=== PATIENT | male | born 1970 | race Caucasian/White ===

== ENCOUNTER 2018-10-10 08:01 | Outpatient (CLI) ==
[2017-12-17 04:02] VITALS: BMI 32.3
--- NOTE | 2018-10-10 09:52 | CT ---
EXAM: CT ABDOMEN AND PELVIS HISTORY: Pelvic and left flank pain, low back pain. Difficulty urinating at times. TECHNIQUE: CT abdomen and pelvis with and without intravenous contrast. Images were reconstructed u sing 5 mm section thickness. Reformations were prepared. 100 mL Omnipaque. COMPARISON: 12/17/2017 FINDINGS: Unenhanced images reveal a 15 mm water attenuation cystic mass of the medial upper right renal cortex . There is no nephrolithiasis or hydronephrosis. There is no perinephric fat stranding or ureteral calculus. The right kidney is slightly smaller than the left kidney possibly related to a degree of atrophy. After intravenous contrast administration, the kidneys revealed normal enhancement. The sm all cystic mass of the right kidney revealed no internal enhancement and is stable in size since prev ious study. The liver and spleen are within normal limits. Gallbladder is decompressed. No pancreatic or adrena l pathology is seen. Normal abdominal aorta. The stomach is mildly distended with food product, non specific. Normal appendix. There is no prostate enlargement or ascites. Ventral abdominal wall is intact. The bones are within normal limits. Lung bases are clear. No pneumoperitoneum. IMPRESSION: No clear etiology for the patient's symptoms was found. There is no hydronephrosis, n ephrolithiasis, perinephric fat stranding or evidence of ureteral obstruction. Urinary bladder and p rostate appear normal. There is slight atrophy of the right kidney and a small simple right renal cy st.
== END 2018-10-10 08:02 | disposition home or self-care (01) ==
LOC: RAD 08:01
PROVIDERS: ATTEND Family Medicine
DX: R10.9 Unspecified abdominal pain (principal)
CPT/HCPCS: 36415; 82565